=== PATIENT | female | born 2000 | race Caucasian/White ===

== ENCOUNTER 2020-12-25 19:26 | Emergency (ER) | payer OTHER, SELFPAY ==
[2020-12-25 21:14] VITALS: BP 115/78; PULSE 89; RESP 16; TEMP 36.6; O2SAT 99
--- NOTE | 2020-12-25 21:37 | ED.GENADULT ---
HPI - General Adult General Chief complaint: Head Injury Stated complaint: head injury-headache, nausea Source: patient Mode of arrival: ambulatory Limitations: no limitations History of Present Illness HPI narrative: Suzan is a previously healthy 20F that presented to the ED after she fell and hit her head 24 hours ago. She tripped, fell and hit her head on a log. She did not lose consciousness and had no other injuries. Today she has had nausea but no vomiting and got a bruise on her left forehead. Review of Systems Constitutional: Constitutional: Reports no additional constitutional complaints Eyes: Eyes: Reports no additional eye complaints ENT: Reports system reviewed and no additional complaints, except as documented Cardiovascular: Cardiovascular: Reports no additional cardiovascular complaints Respiratory: Respiratory: Reports no additional respiratory complaints Gastrointestinal: Gastrointestinal: Reports no additional gastrointestinal complaints Genitourinary: Genitourinary: Reports no additional female genitourinary complaints Musculoskeletal: Musculoskeletal: Reports no additional musculoskeletal complaints Integumentary/Breasts: Skin/Breast: Reports system reviewed and no additional complaints, except as docu Neurologic: Reports system reviewed and no additional complaints, except as documented Psychiatric: Psychiatric: Reports no additional psychiatric complaints Endocrine: Endocrine: Reports no additional endocrine complaints Hematologic/Lymphatic: Hematologic/Lymphatic: Reports no additional hematologic/lymphatic complaints Allergic/Immunologic: Allergic/Immunologic: Reports no additional allergic/immunologic complaints Exam Const: General: no acute distress and alert Orientation/consciousness: patient oriented x3 Limitations: No altered mental status HENMT: Head: normal to inspection Other: atrauamtic Eyes: Conjunctivae: conjunctivae normal Pupils: Equal, round and reactive pupils present Neck: Neck: normal visual inspection Chest: Chest palpation & inspection: normal inspection of the chest Resp: Effort & Inspection: normal respiratory effort, not labored, no retractions and not tachypneic Cardio: Rate: regular rate Skin: General skin exam: normal color Rashes: no rashes Neuro: General: patient oriented x3, moves all extremities, no focal motor deficits and CN's II-XI intact bilaterally Speech: normal speech Other: She was able to say the months of the years backwards and count down from 100 by serial 7s. Normal finger to nose. She was able to repeat 3 words back after 5 mintues. Extrem: General: normal to inspection Psych: Mental Status: mental status grossly normal Course Course Emergency Course: CT unnecessary by [place] CT Head Injury/Trauma rule Vital Signs Vital signs: Vital Signs Temperature 97.8 F 12/25/20 21:14 Pulse Rate 89 12/25/20 21:14 Respiratory Rate 16 12/25/20 21:14 Blood Pressure 115/78 12/25/20 21:14 Pulse Oximetry 99 12/25/20 21:14 Temperature 97.6 F 12/25/20 21:56 Pulse Rate 64 12/25/20 21:56 Respiratory Rate 16 12/25/20 21:56 Blood Pressure 115/78 12/25/20 21:14 Pulse Oximetry 99 12/25/20 21:56 Medical Decision Making Vital Signs Vital Signs: Vital Signs Temperature 97.8 F 12/25/20 21:14 Pulse Rate 89 12/25/20 21:14 Respiratory Rate 16 12/25/20 21:14 Blood Pressure 115/78 12/25/20 21:14 Pulse Oximetry 99 12/25/20 21:14 Temperature 97.6 F 12/25/20 21:56 Pulse Rate 64 12/25/20 21:56 Respiratory Rate 16 12/25/20 21:56 Blood Pressure 115/78 12/25/20 21:14 Pulse Oximetry 99 12/25/20 21:56 Discharge Plan Discharge Clinical Impression: Concussion Patient Disposition: Home, Self-Care Condition: Stable Instructions: Concussion (ED) Additional Instructions: Please return to the emergency department for any new, concerning or worsening symptoms. Follow
[2020-12-25 21:56] VITALS: PULSE 64; RESP 16; TEMP 36.4; O2SAT 99
== END 2020-12-25 21:57 | disposition home or self-care (01) ==
PROVIDERS: Emergency Provider Family Medicine
DX: S06.0X9A Concussion with loss of consciousness of unspecified duration, initial encounter (principal); W01.0XXA Fall on same level from slipping, tripping and stumbling without subsequent striking against object, initial encounter
CPT/HCPCS: 99282

== ENCOUNTER 2021-05-28 20:43 | Emergency (ER) | payer OTHER, SELFPAY ==
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
[2021-05-28 21:00] VITALS: BP 107/68; PULSE 70; RESP 16; TEMP 36.5; O2SAT 100
[2021-05-28 21:24] LABS: Add Urine Microscopic? YES; Appearance Urine Cloudy (Clear); Basophils Absolute Auto 0.06 K/mm3 (0.00-0.10); Basophils Percent Auto 0.8 % (0.0-1.0); Bilirubin Urine Negative (Negative); Blood Urine Negative (Negative); Color Urine Light Yellow (Yellow); Eosinophils Absolute Auto 0.22 K/mm3 (0.02-0.50); Eosinophils Percent Auto 2.8 % (1.0-6.0); Glucose Urine UA Negative (Negative); Hematocrit 39.9 % (35.0-49.0); Hemoglobin 13.1 g/dL (12.0-15.0); Immature Granulocyte Absolute 0.03 K/mm3 (0.00-0.00); Immature Granulocyte Percent A 0.4 % (0.0-0.0); Ketones Urine Negative (Negative); Leukocyte Esterase Ur Negative (Negative); Lymphocytes Absolute Auto 1.65 K/mm3 (1.10-4.50); Lymphocytes Percent Auto 21.3 % (18.0-42.0); Mean Corpuscular HGB Conc 32.8 g/dL (32.0-36.0); Mean Corpuscular Hemoglobin 30.3 pg (27.0-31.0); Mean Corpuscular Volume 92.1 fL (78.0-102.0); Mean Platelet Volume 10.4 fl (9.2-11.8); Monocytes Absolute Auto 0.89 K/mm3 (0.10-0.90); Monocytes Percent Auto 11.5 % (2.0-11.0); Neutrophils Absolute Auto 4.9 K/mm3 (1.7-7.2); Neutrophils Percent Auto 63.2 % (50.0-70.0); Nitrate Urine Negative (Negative); Platelet Count Result 345 K/mm3 (150-420); Protein Urine Negative (Negative); Red Blood Count 4.33 M/mm3 (4.20-5.40); Urobilinogen Urine 0.2 mg/dL (0.2-1.0); White Blood Count 7.7 K/mm3 (4.8-10.8); pH Urine 7.5 (5.0-8.0)
[2021-05-28 21:30] LABS: Amorphous Sediment Urine Heavy; Bacteria Urine 1+ /hpf; RBC Urine 0-2 /hpf (0-2); Squamous Epithelial Cell Urine Few /hpf (Few); WBC Urine 0-3 /hpf (0-3)
[2021-05-28 21:31] LABS: Pregnancy On Board Control Positive; Urine Pregnancy Test Negative
[2021-05-28] MEDS: ONDANSETRON HCL ODT 4 MG TABLET PO (21:33)
[2021-05-28 21:35] LABS: Prothrombin Time 10.7 Seconds (9.50-12.10)
[2021-05-28 21:43] LABS: Lactic Acid Reflex 0.8 mmol/L (0.4-2.0)
[2021-05-28 21:47] LABS: Alanine Aminotransferase 23 U/L (14-59); Albumin Level 4.1 g/dL (3.4-5.0); Alkaline Phosphatase 73 U/L (46-116); Anion Gap 7 mmol/L (8-16); Aspartate Amino Transferase 13 U/L (15-37); Bilirubin,Total 0.3 mg/dL (0.00-1.00); Blood Urea Nitrogen 12 mg/dL (7-18); Calcium 8.6 mg/dL (8.5-10.1); Carbon Dioxide 30 mmol/L (21-32); Chloride 102 mmol/L (98-108); Estimated CRCL calculation 71 ml/min; Estimated Glomerular Filt Rate > 60; Glucose 84 mg/dL (70-99); Osmolality Calculated 286 mOsm/kg (285-295); Potassium 3.8 mmol/L (3.5-5.1); Sodium 139 mmol/L (136-145); Total Protein 7.4 g/dL (6.4-8.2)
[2021-05-28 21:48] LABS: Lipase 90 U/L (73-393)
--- NOTE | 2021-05-28 22:17 | PC.NURSE ---
ERP at bedside discussing test results and discharge plan. At this time, pt informs ERP that she has also been having vaginal discharge and states that she has had multiple sexual partners recently. ERP to order STD testing. Pt aware that test is a send out and will take several days to result.
[2021-05-28 22:20] VITALS: BP 110/68; PULSE 72; RESP 16; TEMP 36.6; O2SAT 99
== END 2021-05-28 22:22 | disposition home or self-care (01) ==
PROVIDERS: Emergency Provider Internal Medicine Critical Care Medicine
DX: K29.00 Acute gastritis without bleeding (principal); R10.84 Generalized abdominal pain
CPT/HCPCS: 36415; 80053; 81001; 81025; 83605; 83690; 85025; 85610; 87491; 87591; 99284; A9270

== ENCOUNTER 2022-04-29 10:00 | Emergency (ER) | payer BC, OTHER, SELFPAY ==
[2022-04-29 10:00] VITALS: BP 125/75; PULSE 85; RESP 16; TEMP 37; O2SAT 99
[2022-04-29 10:06] VITALS: BP 125/75; PULSE 85; RESP 16; TEMP 37; O2SAT 99
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
== END 2022-04-29 10:30 | disposition home or self-care (01) ==
PROVIDERS: Emergency Provider Internal Medicine Critical Care Medicine
DX: H53.2 Diplopia (principal)
CPT/HCPCS: 99281

== ENCOUNTER 2022-11-04 12:56 | Emergency (ER) | payer BC, OTHER, SELFPAY ==
[2022-11-04 13:04] VITALS: BP 115/77; PULSE 84; RESP 20; TEMP 36.7; O2SAT 98
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
[2022-11-04 13:37] LABS: Basophils Absolute Auto 0.08 K/mm3 (0.00-0.10); Basophils Percent Auto 1.1 % (0.0-1.0); Eosinophils Absolute Auto 0.38 K/mm3 (0.02-0.50); Hematocrit 40.4 % (35.0-49.0); Hemoglobin 13.1 g/dL (12.0-15.0); Immature Granulocyte Absolute 0.06 K/mm3 (0.00-0.00); Immature Granulocyte Percent A 0.8 % (0.0-0.0); Lymphocytes Absolute Auto 1.96 K/mm3 (1.10-4.50); Mean Corpuscular HGB Conc 32.4 g/dL (32.0-36.0); Mean Corpuscular Hemoglobin 28.8 pg (27.0-31.0); Mean Corpuscular Volume 88.8 fL (78.0-102.0); Mean Platelet Volume 10.2 fl (9.2-11.8); Monocytes Percent Auto 10.6 % (2.0-11.0); Neutrophils Absolute Auto 4.3 K/mm3 (1.7-7.2); Neutrophils Percent Auto 56.5 % (50.0-70.0); Platelet Count Result 337 K/mm3 (150-420); Red Blood Count 4.55 M/mm3 (4.20-5.40); Red Cell Distribution Width 12.6 % (11.6-14.4); White Blood Count 7.5 K/mm3 (4.8-10.8)
[2022-11-04 13:38] LABS: Urine Pregnancy Test Negative
[2022-11-04 13:39] LABS: Pregnancy On Board Control Positive
[2022-11-04 13:51] LABS: Partial Thromboplastin Time 29.6 SEC (23.90-30.70); Prothrombin Time 10.6 Seconds (9.50-12.10)
[2022-11-04 13:55] LABS: Alanine Aminotransferase 16 U/L (14-59); Albumin Level 4.1 g/dL (3.4-5.0); Alkaline Phosphatase 77 U/L (46-116); Anion Gap 6 mmol/L (8-16); Aspartate Amino Transferase 14 U/L (15-37); Bilirubin,Total 0.4 mg/dL (0.00-1.00); Blood Urea Nitrogen 12 mg/dL (7-18); Carbon Dioxide 31 mmol/L (21-32); Chloride 104 mmol/L (98-108); Estimated CRCL calculation 73 ml/min; Estimated Glomerular Filt Rate > 60; Glucose 63 mg/dL (70-99); Lipase 26 U/L (16-77); Osmolality Calculated 289 mOsm/kg (285-295); Potassium 3.5 mmol/L (3.5-5.1); Sodium 141 mmol/L (136-145); Total Protein 7.8 g/dL (6.4-8.2)
[2022-11-04 14:12] VITALS: BP 107/71; PULSE 73; RESP 20; TEMP 36.7; O2SAT 99
== END 2022-11-04 14:13 | disposition home or self-care (01) ==
PROVIDERS: Emergency Provider Internal Medicine Critical Care Medicine; PCP Physician Assistant
DX: K92.0 Hematemesis (principal)
CPT/HCPCS: 36415; 80053; 81025; 83690; 85025; 85610; 85730; 99283

== ENCOUNTER 2024-12-26 16:26 | Emergency (ER) | payer OTHER, SELFPAY ==
--- NOTE | ~2024-12-26 | CT_ITS ---
Suzan Neff EXAMINATION: CT abdomen pelvis w con COMPARISON: None HISTORY: rlq pain TECHNIQUE: Axial images were obtained through the abdomen, pelvis post administration of IV contrast. Oral contrast was also administered. Coronal reconstruction images were obtained from the axial views. CT scan performed using dose optimization techniques including the following automated exposure control; adjustment of mA and/or kV; use of iterative reconstruction technique. Automatic exposure control was used to reduce radiation dose. Permanent radiation dose record is archived to PACS. FINDINGS: CT abdomen: LUNG BASES: The lung bases are clear. The visualized portions of the heart and pericardium are unremarkable. LIVER: Unremarkable, liver contours intact, no lesions. SPLEEN: Unremarkable. KIDNEYS: Right Kidney: Unremarkable. No calculi. No hydronephrosis. Left Kidney: Unremarkable. No calculi. No hydronephrosis ADRENAL GLANDS: Unremarkable. PANCREAS: Unremarkable. GALLBLADDER/BILIARY: Unremarkable. No biliary dilatation. STOMACH AND ESOPHAGUS: Visualized stomach and esophagus within normal limits. BOWEL/MESENTERY: Moderate fecal content, no colitis or diverticulitis. Appendix not identified, there is no inflammation surrounding the cecum. Mesentery normal. No dilated or thickened loops of small bowel ADENOPATHY/RETROPERITONEUM: No lymphadenopathy. AORTA/VASCULATURE: Normal caliber aorta. FREE FLUID OR FREE AIR: Small amount of free fluid.. CT pelvis: SOLID ORGANS/REPRODUCTIVE: Unremarkable. BLADDER: Within normal limits. OSSEOUS STRUCTURES: No acute osseous abnormality.No suspicious lesions. OVERLYING SOFT TISSUES: Unremarkable. IMPRESSION: 1. No etiology identified to explain the patient's symptoms. Follow-up suggested if symptoms persist. Reviewed, dictated and finalized at location P. IMPRESSION: 1. No etiology identified to explain the patient's symptoms. Follow-up suggeste d if symptoms persist.
[2024-12-26 16:26] VITALS: BP 106/82; PULSE 80; RESP 14; TEMP 36.8; O2SAT 99
[2024-12-26 16:46] LABS: Hematocrit 36.2 % (35.0-49.0); Hemoglobin 11.2 g/dL (12.0-15.0); Immature Granulocyte Percent A 0.4 % (0.0-0.0); Lymphocytes Absolute Auto 1.24 K/mm3 (1.10-4.50); Mean Corpuscular HGB Conc 30.9 g/dL (32-36); Mean Corpuscular Hemoglobin 25.3 pg (27.0-31.0); Mean Corpuscular Volume 81.9 fL (78.0-102.0); Nucleated Red Blood Cells Absolute Auto 0.00 K/mm3 (0.00-0.00); Nucleated Red Blood Cells Perc 0.0 % (0-0.0); Platelet Count Result 330 K/mm3 (150-420); Red Blood Count 4.42 M/mm3 (4.20-5.40); White Blood Count 8.1 K/mm3 (4.8-10.8)
[2024-12-26 16:57] LABS: Anion Gap 8 mmol/L (4-12); Blood Urea Nitrogen 12 mg/dL (7-17); Calcium 9.1 mg/dL (8.4-10.2); Carbon Dioxide 26 mmol/L (22-30); Chloride 107 mmol/L (98-107); Estimated CRCL calculation 83 ml/min; Estimated Glomerular Filt Rate > 60; Glucose 106 mg/dL (65-110); Osmolality Calculated 291 mOsm/kg (285-295); Potassium 4.2 mmol/L (3.4-5.0); Sodium 141 mmol/L (137-145)
[2024-12-26 17:01] VITALS: BP 104/65; PULSE 68; RESP 15; O2SAT 98
[2024-12-26 17:14] LABS: Beta HCG Quantitative < 2.39 mIU/ML
--- OUTSIDE RECORDS SUMMARY | 2024-12-26 17:37 | XMS_ITS | Clinical Summary ---
Author Organization [facility] Address [address] [place] [address] Phone Care Team Providers Care Refinery Operator Crude Unit Name Role Phone Pb Campoverde Primary Care Provider [phone] Allergies No known active allergies Medications No known medications Social History Tobacco Use Types Packs/Day Years Used Date Smoking Tobacco: Former Comments Unknown Sex and Gender Information Value Date Recorded Sex Assigned at Not on file Legal Sex Female 9:10 AM SCIENCE INSTRUCTOR Gender Identity Not on file Sexual Orientation Not on file Last Filed Vital Signs Vital Sign Reading Time Taken Comments Blood Pressure 108/63 02/01/2015 9:26 AM SCIENCE INSTRUCTOR Pulse - - Temperature 36.7 C (98 F) 02/01/2015 9:26 AM SCIENCE INSTRUCTOR Respiratory Rate 16 02/01/2015 9:26 AM SCIENCE INSTRUCTOR Oxygen Saturation 100% 02/01/2015 9:26 AM SCIENCE INSTRUCTOR Inhaled Oxygen Concentration - - Weight 49.9 kg (110 lb) 02/01/2015 9:26 AM SCIENCE INSTRUCTOR Height 170.2 cm (5' 7) 02/01/2015 9:26 AM SCIENCE INSTRUCTOR Body Mass Index 17.23 02/01/2015 9:26 AM SCIENCE INSTRUCTOR Plan of Treatment Not on file Insurance [place] Care Teams Refinery Operator Crude Unit Relationship Specialty Start Date End Date Pb Campoverde [address] [place] [address] PCP - General Physician Escort Service Attendant 02/01/15
--- OUTSIDE RECORDS SUMMARY | 2024-12-26 17:37 | XMS_ITS | Clinical Summary ---
Author Organization [facility] Address [address] [place] [address] Care Team Providers Care Chief Controller Tower Name Role Phone Unavailable Primary Care Provider Unavailabl e Source Comments [facility],non-owned Affiliates and Associated Physician Practices is amultiple site organization consisting of ambulatory clinics and hospital sitesin [place], [place], [place] and [place]. This disclosure is being madepursuant to the Care Everywhere program and may not contain all information available regarding this patient. Last updated 17.[facility] Allergies No known active allergies Medications * This document contains information received from the source organization and may not represent a complete record from that organization. * Be aware that medications may not be up to date on this document. Alwaysverify current medications with the patient. citalopram (CELEXA) 10 MG tabletIndicatio ns:Aggressive Behavior,Depres debi Take 1 Tab by mouth once daily Reasons: Aggressive Behavior, Depression 15 Tab 3 5 Active Active Problems Problem Noted Date Diagnosed Date Mood disorder 02/04/2015 Polysubstance abuse 02/04/2015 Family History Medical History Relation Name Comments Anxiety Disorder Mother Relation Name Status Comments Mother Alive Social History Tobacco Use Types Packs/Day Years Used Date Smoking Tobacco: Never Smokeless Tobacco: Never Alcohol Use Standard Drinks/Week Comments No 0 (1 standard drink = 0.6 oz pur e alcohol) Comments Unknown Sex and Gender Information Value Date Recorded Sex Assigned at Not on file Legal Sex Female 1:41 AM INCIDENT ANALYST Gender Identity Not on file Sexual Orientation Not on file Last Filed Vital Signs Vital Sign Reading Time Taken Comments Blood Pressure 113/66 02/06/2015 2:45 PM INCIDENT ANALYST Pulse 72 02/06/2015 2:45 PM INCIDENT ANALYST Temperature 37.2 C (98.9 F) 02/06/2015 2:45 PM INCIDENT ANALYST Respiratory Rate 16 02/06/2015 2:45 PM INCIDENT ANALYST Oxygen Saturation 100% 02/06/2015 2:45 PM INCIDENT ANALYST Inhaled Oxygen Concentration - - Weight 51.3 kg (113 lb) 02/05/2015 8:21 AM INCIDENT ANALYST Height - - Body Mass Index - - Plan of Treatment Health Maintenance Due Date Last Done Comments HIV SCREENING 2013 HPV VACCINE (1 - 3-dose series) 2013 HEPATITIS C SCREENING 06/02/2016 DTAP/TDAP/TD VACCINES (1 - Tdap) 2017 HEPATITIS B VACCINE (1 of 3 - 19+ 3-dose series) 2017 PAP SMEAR 06/08/2019 DEPRESSION SCREENING 03/15/2024 COVID-19 VACCINE (1 - 2023-2 5 season) 2024 INFLUENZA VACCINE (#1) 2024 ZOSTER VACCINE (1 of 2) 2048 HIB VACCINE Aged Out No longer eligi ble based on patient's age to complete this topic MENINGOCOCCAL (Group B) VACC INE SHARED DECISION-MAKING Aged Out No longer eligibl e based on patient's age to complete this topic MENINGOCOCCAL GROUPS A/C/Y/W VACCINE Aged Out No longer eligible b ased on patient's age to complete this topic PNEUMOCOCCAL VACCINE Aged Out No long er eligible based on patient's age to complete this topic Insurance [place] [address] Advance Directives * Full Code (Latest Code Status on File) Date Activated Date Inactivated Comments 02/03/2015 7:21 AM 02/06/2015 5:12 PM
--- OUTSIDE RECORDS SUMMARY | 2024-12-26 17:39 | XMS_ITS | Data Portability ---
Author Organization [facility] Address [address] [place] [address] Care Team Providers Care Wheel Worker Name Role Phone REYMUNDO CAMPOVERDE Primary Care Provider Assessment No assessment recorded. Plan of Treatment Reminders Order Date Submit Date Provider Last Modified By Organization Details Last Modified Time Details Appointments None recorded. Lab vaginal pathogens panel, ARDEN+probe , vaginal fluid 2024 025 [employer], [address] [facility], [facility], [place], [address], 17:11:55 bacterial vaginosis panel, vaginal 2024 025 [employer] [facility], [address] [facility], [facility], [place], [address], 20:10:36 test, urine 2024 025 [email or web address] In-Office Order, Internal Use Only DO Not Attach Compendium DO Not Attach Compendium, Do Not Delete/merge, [id number] 10:05:46 chlamydia trachomat is + neisseria gonorrhoe ae + trichomon as vaginalis rRNA panel, ARDEN+probe 2024 025 [employer] [facility], [address] [facility], [facility], [place], [address], 20:10:34 CT + NG RNA, PCR, unspecifi ed specimen 2024 025 [facility], [address], [address], [place], [address], 5 20:10:08 treponema pallidum IgG + IgM Ab, QL, IA, serum 2024 025 [facility], [address], [address], [place], [address], 5 20:10:09 HIV 1 + 2, meaningfu l use set 2024 025 [facility], [address], [place], [address], 5 20:10:10 bacterial vaginosis panel, vaginal 2023 024 [facility], [address] [facility], [address], [place], [address], 4 19:08:28 culture, urine 2023 024 [facility], [address] [facility], [address], [place], [address], 4 10:12:49 urinalysi s, dipstick 2023 024 In-Office Order, Internal Use Only DO Not Attach Compendium DO Not Attach Compendium, Do Not Delete/merge, [id number] 4 12:49:38 chlamydia trachomat is + neisseria gonorrhoe ae + trichomon as vaginalis rRNA panel, ARDEN+probe 2023 024 [facility], [address] [facility], [address], [place], [address], 4 06:19:12 Referral None recorded. Procedures None recorded. Surgeries None recorded. Imaging None recorded. Medication Orders Loestrin Fe 04/03 (28-Day) 1 mg-20 mcg (21)/75 mg (7) tablet 2024 025 [id number], [address], [place], [place], [id number], 5 09:04:36 azithromy giselle 500 mg tablet 2024 [facility] #54897, [address], [place], [place], [id number], 5 05:02:31 ceftriaxo ne 1 gram solution for injection 2024 [email or web address] Not available 09:40:00 nitrofura ntoin monohydra te/macroc rystals 100 mg capsule 2023 [facility] #89083, [address], [place], [place], [id number], 5 15:57:11 fluconazo le 150 mg tablet 2023 [facility] #85638, [address], [place], [place], [id number], 5 05:01:41 Patient TargetsNo targets recorded. Patient Instructions Encounter Date Encounter Id Patient Instructions Last Modified By Organization Details Last Modified Time 11/01/2023 [id number] Quitting Tobacco : Care Instructions [email or web address] Not available 11/01/2023 12:49:37 Your women's health annual exam today was unremarkable. Continue to practice breast self awareness like we discussed. Come back to the office with any breast changes, nipple discharge, change to your menstrual cycle, or with complaints of unusual odorous discharge. Otherwise, come back in 1 year for your next well woman annual exam. Do NOT douche as it disturbs the natural balance of bacteria in the vagina and can cause infection. Avoid scented soaps or lotions. Use a basic unscented soap for only the outer skin around your vagina. Wear cotton underwear, avoid thongs, avoid spandex, leggings and wear panty liners daily. You can try probiotics. Use a condom with EVERY sexual encounter to minimize your risk for sexually transmitted infection and unplanned . We are treating you for an urinary tract infection. 1. Hydrate and drink plenty of water 2. Take all of your antibiotics even if you are feeling better. 3. If you get a fever, back pain or start feeling really sick, go to the ER as you might have a kidney infection. Take 1 pill twice a day for 5 days. After you are done with your antibiotic, then take 1 pill for yeast [email or web address] Not available 11/01/2023 12:07:32 08/14/2024 [id number] exposure to sexually transmitted infections: care instructions [email or web address] Not available 08/14/2024 16:18:16 09/18/2024 [id number] Quitting Tobacco : Care Instructions [email or web address] Not available 09/18/2024 10:05:46 1. Start your pill today 2. Take one tablet of your control at the same time every day. 3. If you forget to take your pill, take it as soon as you remember. 4. If you forget to take your pill for an entire day, take 2 pills the next day. 5. If restarting or just starting your control, use a condom for the first 7 days. 6. Consistent condom use is best, as your control pill do NOT protect against sexually transmitted infections. 7. If you have slight nausea or a mild headache, take the pill at night instead of the morning. 8. If you experience severe abdominal pain, chest pain, headaches unrelieved by Tylenol, difficulty breathing, vision changes or severe leg pain, STOP taking your control pills and go to the nearest ER. YOU MUST USE A CONDOM FOR THE NEXT 7 DAYS Do NOT douche as it disturbs the natural balance of bacteria in the vagina and can cause infection. Avoid scented soaps or lotions. Use a basic unscented soap for only the outer skin around your vagina. Wear cotton underwear, avoid thongs, avoid spandex, leggings and wear panty liners daily. You can try probiotics. Use a condom with EVERY sexual encounter to minimize your risk for sexually transmitted infection and unplanned . [email or web address] Not available 09/18/2024 10:04:36 11/20/2024 [id number] Quitting Tobacco : Care Instructions [email or web address] Not available 11/20/2024 11:45:42 Do NOT douche as it disturbs the natural balance of bacteria in the vagina and can cause infection. Avoid scented soaps or lotions. Use a basic unscented soap for only the outer skin around your vagina. Wear cotton underwear, avoid thongs, avoid spandex, leggings and wear panty liners daily. You can try probiotics. Use a condom with EVERY sexual encounter to minimize your risk for sexually transmitted infection and unplanned . [email or web address] Not available 11/20/2024 11:45:42 Reason for Referral None Reported. Results Created Date Observation Date Name Description Value Unit Range Abnormal Flag Note LastModifiedBy Organization Detail LastModifiedTime 11/01/19 24 11/02/2023 NUSWA B BV AND DAMION DA, ARDEN atopobium vaginae LOW - 0 score Not Available [facility] ([facility]) [address] [place], [address], 11/02/2023 19:08:28 11/01/19 24 11/02/2023 NUSWA B BV AND DAMION DA, ARDEN bvab 2 LOW - 0 score Not Available [facility] ([facility]) [address] [place], [address], 11/02/2023 19:08:28 11/01/19 24 11/02/2023 NUSWA B BV AND DAMION DA, ARDEN megasphaera 1 LOW - 0 score Calcu late total score by raffy g the 3 indiv idual bacte rial vagin osis (BV) marke r score s toget her. Total score is inter prete d as follo ws: Total score 0-1: Indic ates the absen ce of BV. Total score 2: Indet ermin ate for BV. Addit ional clini marylin data shoul d be evalu ated to estab otis a diagn osis. Total score 3-6: Indic ates the prese nce of BV. Not Available [facility] ([facility]) [address] [place], [address], 11/02/2023 19:08:28 11/01/19 24 11/02/2023 NUSWA B BV AND DAMION DA, ARDEN osmin albicans, ARDEN NEGATI VE negati ve Not Available [facility] ([facility]) [address] [place], [address], 11/02/2023 19:08:28 11/01/19 24 11/02/2023 NUSWA B BV AND DAMION DA, ARDEN osmin glabrata, ARDEN NEGATI VE negati ve Not Available [facility] ([facility]) [address] [place], [address], 11/02/2023 19:08:28 11/01/19 24 11/03/2023 CT, NG, TRICH VAG BY ARDEN chlamydia by ARDEN NEGATI VE negati ve Not Available [facility] ([facility]) [address] [place], [address], 11/03/2023 06:19:12 11/01/19 24 11/03/2023 CT, NG, TRICH VAG BY ARDEN gonococcus by ARDEN NEGATI VE negati ve Not Available [facility] ([facility]) [address] [place], [address], 11/03/2023 06:19:12 11/01/19 24 11/03/2023 CT, NG, TRICH VAG BY ARDEN trich vag by ARDEN NEGATI VE negati ve Not Available [facility] ([facility]) [address] [place], [address], 11/03/2023 06:19:12 11/01/19 24 11/05/2023 URINE CULTU RENOHEMI NE urine culture, routine FINAL REPORT abnormal Not Available [facility] ([facility]) [address] [place], [address], 11/05/2023 10:12:49 11/01/19 24 11/05/2023 URINE CULTU RE, OLENAI NE result 1 ENTERO COCCUS FAECAL IS abnormal For Enter ococc us speci es, amino glyco sides (exce pt for high- level resis tance marbella ramirezg) , cepha lospo rins, clind amyci n, and trime thopr im-keys lfame thoxa zole are not effec tive clini amado . (CLSI , M100- S26, 2016) Note: this isola te is vanco mycin -susc eptib le. This infor matio n is provi ded for epide miolo gic purpo ses only: vanco mycin is not among the antib iotic s recom krishna d for thera py of urina ry tract infec tions cause d by Enter ococc us. Great er than 100,0 00 colon y formi ng units per mL Not Available [facility] ([facility]) [address] [facility], [place], [address], 11/05/2023 10:12:49 11/01/19 24 11/05/2023 URINE CULTU RE, ROUTI NE antimicrobia l susceptibili ty COMMEN T S = Susce ptibl e; I = Inter media te; R = Resis tant P = Posit bruno; N = Negat bruno MICS are expre ssed in micro grams per mL Antib iotic RSLT# 1 RSLT# 2 RSLT# 3 RSLT# 4 Cipro floxa giselle S Levof loxac in S Nitro furan toin S Penic illin S Tetra cycli ne R Vanco mycin S Not Available [facility] ([facility]) [address] [facility], [place], [address], 11/05/2023 10:12:49 11/01/19 24 11/01/2023 urina lysis , dipst ick Leukocytes Small Not Available In-Offi ce Order Internal Use Only DO Not Attach Compendium DO Not Attach Compendium, Do Not Delete/merge, [id number] 11/01/2023 12:18:44 11/01/19 24 11/01/2023 urina lysis , dipst ick Nitrite negati ve Not Available In-Office Order Internal Use Only DO Not Attach Compendium DO Not Attach Compendium, Do Not Delete/merge, [facility] 11/01/2023 12:18:44 11/01/19 24 11/01/2023 urina lysis , dipst ick Urobilinogen .2 Not Available In-Of fice Order Internal Use Only DO Not Attach Compendium DO Not Attach Compendium, Do Not Delete/merge, [facility] 11/01/2023 12:18:44 11/01/19 24 11/01/2023 urina lysis , dipst ick Protein Negati ve Not Available In-Office Order Internal Use Only DO Not Attach Compendium DO Not Attach Compendium, Do Not Delete/merge, [facility] 11/01/2023 12:18:44 11/01/19 24 11/01/2023 urina lysis , dipst ick pH 6.0 Not Available In-Office Order Internal Use Only DO Not Attach Compendium DO Not Attach Compendium, Do Not Delete/merge, [facility] 11/01/2023 12:18:44 11/01/19 24 11/01/2023 urina lysis , dipst ick Blood Small Not Available In-Office Order Internal Use Only DO Not Attach Compendium DO Not Attach Compendium, Do Not Delete/merge, [facility] 11/01/2023 12:18:44 11/01/19 24 11/01/2023 urina lysis , dipst ick Specific Verden 1.025 Not Available In-Off ice Order Internal Use Only DO Not Attach Compendium DO Not Attach Compendium, Do Not Delete/merge, [facility] 11/01/2023 12:18:44 11/01/19 24 11/01/2023 urina lysis , dipst ick Ketone Negati ve Not Available In-Office Order Internal Use Only DO Not Attach Compendium DO Not Attach Compendium, Do Not Delete/merge, [facility] 11/01/2023 12:18:44 11/01/19 24 11/01/2023 urina lysis , dipst ick Bilirubin Negati ve Not Available In-Office Order Internal Use Only DO Not Attach Compendium DO Not Attach Compendium, Do Not Delete/merge, [facility] 11/01/2023 12:18:44 11/01/19 24 11/01/2023 urina lysis , dipst ick Glucose Negati ve Not Available In-Office Order Internal Use Only DO Not Attach Compendium DO Not Attach Compendium, Do Not Delete/merge, [id number] 11/01/2023 12:18:44 11/01/19 24 11/01/2023 urina lysis , dipst ick Appearance Cloudy Not Available In-Offi ce Order Internal Use Only DO Not Attach Compendium DO Not Attach Compendium, Do Not Delete/merge, [id number] 11/01/2023 12:18:44 11/01/19 24 11/01/2023 urina lysis , dipst ick Color Yellow Not Available In-Office Order Internal Use Only DO Not Attach Compendium DO Not Attach Compendium, Do Not Delete/merge, [id number] 11/01/2023 12:18:44 08/15/19 25 08/16/2024 CHLAM YDIA/ GC AMPLI FICAT ION chlamydia trachomatis, ARDEN POSITI VE negati ve abnormal Not Available [facility] ([facility]) [address] [facility], [place], [address], 08/16/2024 20:10:08 08/15/19 25 08/16/2024 CHLAM YDIA/ GC AMPLI FICAT ION neisseria gonorrhoeae, ARDEN POSITI VE negati ve abnormal Not Available [facility] ([facility]) [address] [facility], [place], [address], 08/16/2024 20:10:08 08/15/19 25 08/15/2024 T PALLI DUM SCREE MAYRA CASCA DE T pallidum antibodies NON REACTI VE nonrea ctive Not Available [facility] ([facility]) [address] [facility], [place], [address], 08/16/2024 20:10:09 08/15/19 25 08/15/2024 HIV AB/P2 4 AG WITH REFLE X HIV Ab/P24 Ag screen NON REACTI VE nonrea ctive HIV-1 /HIV- 2 antib odies and HIV-1 p24 antig en were NOT detec joanne. There is no labor atory evide nce of HIV infec tion. HIV Negat bruno Not Available [facility] ([facility]) [address] [facility], [place], [address], 08/16/2024 20:10:10 09/19/19 25 09/19/2024 CT, NG, TRICH VAG BY ARDEN chlamydia by ARDEN NEGATI VE negati ve Not Available [facility] ([facility]) [address] [facility], [place], [address], 09/19/2024 20:10:34 09/19/19 25 09/19/2024 CT, NG, TRICH VAG BY ARDEN gonococcus by ARDEN NEGATI VE negati ve Not Available [facility] ([facility]) [address] [facility], [place], [address], 09/19/2024 20:10:34 09/19/19 25 09/19/2024 CT, NG, TRICH VAG BY ARDEN trich vag by ARDEN NEGATI VE negati ve Not Available [facility] ([facility]) [address] [place], [address], 09/19/2024 20:10:34 09/19/19 25 09/19/2024 NUSWA B BV AND DAMION DA, ARDEN atopobium vaginae HIGH - 2 score abnormal Not Available [facility] ([facility]) [address] [place], [address], 09/19/2024 20:10:36 09/19/19 25 09/19/2024 NUSWA B BV AND DAMION DA, ARDEN bvab 2 LOW - 0 score Not Available [facility] ([facility]) [address] [place], [address], 09/19/2024 20:10:36 09/19/19 25 09/19/2024 NUSWA B BV AND DAMION DA, ARDEN megasphaera 1 HIGH - 2 score abnormal Calcu late total score by raffy rossi the 3 indiv idual bacte rial vagin osis (BV) marke r score s toget her. Total score is inter prete d as follo ws: Total score 0-1: Indic ates the absen ce of BV. Total score 2: Indet ermin ate for BV. Addit ional clini marylin data shoul d be evalu ated to estab otis a diagn osis. Total score 3-6: Indic ates the prese nce of BV. Not Available [facility] ([facility]) [address] [facility], [place], [address], 09/19/2024 20:10:36 09/19/19 25 09/19/2024 NUSWA B BV AND DAMION DA, ARDEN osmin albicans, ARDEN NEGATI VE negati ve Not Available [facility] ([facility]) [address] [facility], [place], [address], 09/19/2024 20:10:36 09/19/19 25 09/19/2024 NUSWA B BV AND DAMION DA, ARDEN osmin glabrata, ARDEN NEGATI VE negati ve Not Available [facility] ([facility]) [address] [facility], [place], [address], 09/19/2024 20:10:36 09/19/19 25 09/18/2024 pregn ken test, urine HCG negati ve Not Available In-Office Order Internal Use Only DO Not Attach Compendium DO Not Attach Compendium, Do Not Delete/merge, [id number] 09/18/2024 10:02:25 11/21/19 25 11/22/2024 NUSWA B VAGIN ITIS PLUS (VG+) atopobium vaginae LOW - 0 score Not Available [facility] ([facility]) [address] [place], [address], 11/22/2024 17:11:55 11/21/19 25 11/22/2024 NUSWA B VAGIN ITIS PLUS (VG+) bvab 2 LOW - 0 score Not Available [facility] ([facility]) [address] [place], [address], 11/22/2024 17:11:55 11/21/1911/22/2024 NUSWA B VAGIN ITIS PLUS (VG+) megasphaera 1 LOW - 0 score Calcu late total score by raffy rossi the 3 indiv idual bacte rial vagin osis (BV) marke r score s toget her. Total score is inter prete d as follo ws: Total score 0-1: Indic ates the absen ce of BV. Total score 2: Indet ermin ate for BV. Addit ional clini marylin data shoul d be evalu ated to estab otis a diagn osis. Total score 3-6: Indic ates the prese nce of BV. Not Available [facility] ([facility]) [address] [place], [address], 11/22/2024 17:11:55 11/21/19 25 11/22/2024 NUSWA B VAGIN ITIS PLUS (VG+) osmin albicans, ARDEN NEGATI VE negati ve Not Available [facility] ([facility]) [address] [place], [address], 11/22/2024 17:11:55 11/21/19 25 11/22/2024 NUSWA B VAGIN ITIS PLUS (VG+) osmin glabrata, ARDEN NEGATI VE negati ve Not Available [facility] ([facility]) [address] [place], [address], 11/22/2024 17:11:55 11/21/19 25 11/22/2024 NUSWA B VAGIN ITIS PLUS (VG+) trich vag by ARDEN NEGATI VE negati ve Not Available [facility] ([facility]) [address] [place], [address], 11/22/2024 17:11:55 11/21/19 25 11/22/2024 NUSWA B VAGIN ITIS PLUS (VG+) chlamydia trachomatis, ARDEN NEGATI VE negati ve Not Available [facility] ([facility]) [address] [facility], [place], [address], 11/22/2024 17:11:55 11/21/19 25 11/22/2024 NUSWA B VAGIN ITIS PLUS (VG+) neisseria gonorrhoeae, ARDEN NEGATI VE negati ve Not Available [facility] ([facility]) [address] [facility], [place], [address], 11/22/2024 17:11:55 Result Notes None recorded. Problems Name Problem SNOMED Code Status Onset Date Resolution Date Notes Provider Name and Address Organization Details Recorded Time Anxiety 76629615 Active Dilia Jefferson MD Attn: Jean-Pierre enid,[address] [place], [place], [address] [place] [address] 2, [facility] 6 17:07:30 Irregular periods 40233101 Active Dilia Jefferson MD Attn: Jean-Pierre rossi,[address] [place], [place], [address] [place] [address] 2, [facility] 6 20:08:58 Concussion injury of brain 374975241 Active 021 Reymundo Campoverde PA-C Attn: Herbluiz enid,[address] [place], [place], [address] [place] [address] 2, [facility] 1 11:51:39 History of chlamydial infection 806042307 Active 023 MARIANO JEFFERSON MD Attn: Jean-Pierre rossi,[address] [place], [address], [facility] 3 12:39:28 Problem Notes None recorded. Procedures Surgical History Date Name Laterality Status Provider Name and Address Organization Details Recorded Time 04/07/2022 Date of Last Pap Smear completed Julia Wills MA [facility] 08/14/2024 15:58:21 Imaging Results None recorded. Procedure Notes None recorded. Medical Equipment None Reported. Allergies Allergen ID Allergen Name Allergen Category Reaction Reaction Severity Criticality Documentation Date Start Date Code Code System Note Provider Name and Address Organization Details Recorded Time 19971 Zantac medicatio n other moderate Not available 08/24/2016 94321 3 RxNorm Ingris Llanos MA null, [place] - [facility] 7 14:31:02 Medications Name Sig Start Date Stop Date Status Note LastModified by Organization Details LastModified Time fluconazole 150 mg tablet Take 1 tablet every day by oral route as directed for 1 day, for yeast. 09/28 completed Not Available Not Available Not Available citalopram 10 mg tablet TAKE 1 TABLET BY MOUTH EVERY DAY 05/19 completed Not Available Not Available Not Available Keflex 500 mg capsule Take 1 capsule 3 times a day by oral route for 10 days. 08/20 completed Not Available Not Available Not Available fluconazole 200 mg tablet TAKE 1 TABLET BY MOUTH NOW AND 72 HOURS LATER 05/19 completed Not Available Not Available Not Available Tubersol 5 tub. unit/0.1 mL intradermal injection solution Administe r .1ml interderm ally 08/24 completed Not Available Not Available Not Available metronidazo le 500 mg tablet TAKE 1 TABLET BY MOUTH TWICE DAILY FOR 7 DAYS. AVOID ALCOHOL WHILE ON THIS AND FOR 2 DAYS AFTER 11/20 completed Not Available Not Available Not Available ciprofloxac in 500 mg tablet TAKE 1 TABLET BY MOUTH EVERY 12 HOURS FOR 10 DAYS 08/14 completed Not Available Not Available Not Available ceftriaxone 1 gram solution for injection Take 1 g by injection route. 09/18 completed Not Available Not Available Not Available citalopram 20 mg tablet 1 daily 01/08 completed Not Available Not Available Not Available omeprazole 20 mg capsule,del ayed release TAKE 1 CAPSULE BY MOUTH DAILY 05/19 completed Not Available Not Available Not Available ketorolac 60 mg/2 mL intramuscul ar solution Inject 2 mL by intramusc ular route. 09/08 completed Not Available Not Available Not Available esomeprazol e magnesium 20 mg capsule,del ayed release TAKE 1 CAPSULE BY MOUTH EVERY DAY 08/14 completed Not Available Not Available Not Available azithromyci n 500 mg tablet Take 2 tablets by oral route for 3 days. 08/27 completed Not Available Not Available Not Available Sprintec (28) 0.25 mg-0.035 mg tablet Take 1 tablet(s) every day by oral route. 08/20 completed Not Available Not Available Not Available nitrofurant oin monohydrate /macrocryst als 100 mg capsule TAKE 1 CAPSULE BY MOUTH EVERY 12 HOURS FOR 5 DAYS DIRECTED FOR UTI 08/14 completed Not Available Not Available Not Available Blisovi Fe 04/03 (28) 1 mg-20 mcg (21)/75 mg (7) tablet TAKE 1 TABLET BY MOUTH EVERY DAY DIRECTED FOR CONTROL 11/21 completed Not Available Not Available Not Available Vienva 0.1 mg-20 mcg tablet TAKE 1 TABLET BY MOUTH EVERY DAY 10/09 completed Not Available Not Available Not Available Vitals Date Recorded Body height Body mass index (BMI) Body weight Respiratory rate Oxygen saturation Oxygen saturation in Arterial blood by Pulse oximetry Heart rate Systolic And Diastolic Provider Name and Address Organization Details Last Updated DateTime 5 170.18 cm 21.3 kg/m2 38030.5 6 g 16 /min 98 % 98 % 87 /min 120/76 mm[Hg] Julia Wills MA [facility] 5 16:00:23 Date Recorded Body height Body mass index (BMI) Body weight Oxygen saturation Oxygen saturation in Arterial blood by Pulse oximetry Heart rate Systolic And Diastolic Provider Name and Address Organization Details Last Updated DateTime 5 170.18 cm 21.1 kg/m2 94658.9 7 g 98 % 98 % 66 /min 111/79 mm[Hg] Nadia Ho MA [facility] 5 11:55:49 Date Recorded Body height Body mass index (BMI) Body weight Respiratory rate Heart rate Systolic And Diastolic Provider Name and Address Organization Details Last Updated DateTime 5 170.18 cm 21.2 kg/m2 74384.4 1 g 16 /min 75 /min 116/72 mm[Hg] Julia Wills MA [facility] 5 09:41:59 Date Recorded Body height Body mass index (BMI) Body weight Heart rate Systolic And Diastolic Provider Name and Address Organization Details Last Updated DateTime 11/01/2023 170.18 cm 19.3 kg/m2 29640.86 g 62 /min 108/66 mm[Hg] Amy Mosqueda MA [facility] 11/01/2023 11:43:39 Date Recorded Body height Body mass index (BMI) Body weight Heart rate Systolic And Diastolic Provider Name and Address Organization Details Last Updated DateTime 11/20/2024 170.18 cm 21.9 kg/m2 50269.93 g 76 /min 110/74 mm[Hg] Nadia Ho MA [facility] 11/20/2024 11:33:01 Social History Question Answer Notes LastModified by Organizat ion Details LastModified Time Tobacco Smoking Status Current Some Day Smoker Amy Mosqueda MA null, [place] - [facility] 11/01/2023 11:41:29 Are You Blind Or Do You Have Difficulty Seeing? No Information not available 10/09/2022 What Is Your Level Of Caffeine Consumption? Moderate Information not available 09/21/2023 In The 14 Days Before Symptom Onset, Have You Had Close Contact With A Laboratory-confi rmed COVID-19 While That Case Was Ill? No Information not available 08/20/2020 In The 14 Days Before Symptom Onset, Have You Had Close Contact With A Person Who Is Under Investigation For COVID-19 While That Person Was Ill? No Information not available 08/20/2020 Have You Been To An Area Known To Be High Risk For COVID-19? No Information not available 08/20/2020 Are You Deaf Or Do You Have Serious Difficulty Hearing? No Information not available 10/09/2022 What Type Of Diet Are You Following? REGULAR Information not available 08/20/2020 What Was The Date Of Your Most Recent Tobacco Screening? 11/20/2024 Information not available 11/20/2024 What Is Your Relationship Status? Single Information not available 08/20/2020 Do You Use Your Seat Belt Or Car Seat Routinely? Yes Information not available 10/09/2022 Are You Sexually Active? Yes Information not available 10/09/2022 Do You Have Smoke And Carbon Monoxide Detectors In Your Home? Yes Information not available 08/20/2020 Are You Passively Exposed To Smoke? Yes Information not available 08/20/2020 How Much Tobacco Do You Smoke? 0.25 PPD 1-2 Cigarettes Information not available 11/01/2023 Has Tobacco Cessation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
[2024-12-26 18:00] VITALS: BP 113/75; PULSE 62; RESP 16; O2SAT 99
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
== END 2024-12-26 18:17 | disposition home or self-care (01) ==
PROVIDERS: Emergency Provider Family Medicine; PCP Physician Assistant
DX: R10.31 Right lower quadrant pain (principal)
CPT/HCPCS: 36415; 74177; 80048; 84702; 85025; 99284; Q9967